=== PATIENT | male | born 1945 | race Caucasian/White ===

== ENCOUNTER 2021-09-03 00:14 | Emergency (ER) | payer MEDICARE, SELFPAY ==
--- NOTE | 2021-09-03 | ECG_ITS ---
Test Reason : CHEST PAIN Blood Pressure : / mmHG Vent. Rate : 070 BPM Atrial Rate : 070 BPM P-R Int : 162 ms QRS Dur : 092 ms QT Int : 444 ms P-R-T Axes : 048 -57 055 degrees QTc Int : 479 ms Normal sinus rhythm Left axis deviation Pulmonary disease pattern Nonspecific T wave abnormality Abnormal ECG No previous ECGs available Referred By: Sridevi Wilder Electronically Signed By:LALO BOO
--- NOTE | ~2021-09-03 | XR_ITS ---
EXAMINATION: XR CHEST CLINICAL INFORMATION: Chest pain COMPARISON: None TECHNIQUE: Frontal view of the chest was obtained. FINDINGS: Cardiac leads overlie the chest. The lungs are well expanded. There is no focal consolidation, edema, or effusion. No pneumothorax. The cardiomediastinal silhouette is within normal limits. No acute osseous abnormality. XR/XR chest 1V IMPRESSION: No acute pulmonary finding.
[2021-09-03 00:23] VITALS: BP 138/80; PULSE 68; RESP 18; TEMP 36.6; O2SAT 96; BMI 22.9
[2021-09-03 00:51] LABS: Basophils Absolute Auto 0.1 X10*3/uL (0.0-0.2); Basophils Percent Auto 1.2 % (0-2); Eosinophils Absolute Auto 0.3 X10*3/uL (0.0-0.4); Eosinophils Percent Auto 3.5 % (0-4); Hematocrit 42.7 % (42.0-52.0); Hemoglobin 13.9 g/dl (14.0-18.0); Imm Gran Abs Auto 0.02 X10*3/uL (0.00-0.03); Imm Gran Pct Auto 0.2 % (0.0-0.4); Lymphocytes Absolute Auto 2.5 X10*3/uL (1.2-4.9); Lymphocytes Percent Auto 28.5 % (20-40); MANUAL DIFF FLAG NO; Mean Corpuscular HGB Conc 32.6 g/dl (31.0-36.0); Mean Corpuscular Hemoglobin 30.2 pg (27.0-33.0); Mean Corpuscular Volume 92.6 fL (80.0-98.0); Mean Platelet Volume 10.8 fL (9.4-12.4); Monocytes Absolute Auto 0.5 X10*3/uL (0.1-1.2); Monocytes Percent Auto 6.1 % (2-11); Neutrophils Absolute Auto 5.4 x10*3/uL (2.0-8.3); Neutrophils Percent Auto 60.5 % (45-73); Platelet Count 255 X10*3/uL (160-400); Red Blood Count 4.61 X10*6/uL (4.60-5.80); Red Cell Distribution Width 13.4 % (11.0-16.0); White Blood Count 8.9 X10*3/uL (4.8-10.8)
[2021-09-03 01:04] LABS: Anion Gap 16 (12-20); Blood Urea Nitrogen 24 mg/dL (9-16); Calcium 10.1 mg/dL (8.4-10.2); Carbon Dioxide 25 mmol/L (22-29); Chloride 103 mmol/L (96-108); Creatinine Clr Calc Pharmacy 45.7; Estimated Glomerular Filt Rate 49; Glucose Random 285 mg/dL (60-115); Potassium 4.7 mmol/L (3.3-5.1); Sodium 139 mmol/L (135-145)
[2021-09-03 02:11] LABS: Troponin-I High Sensitivity 30.8 ng/L (<3.5-35.0)
[2021-09-03 03:43] VITALS: BP 167/74; PULSE 60; RESP 16; O2SAT 98
[2021-09-03 04:04] LABS: COVID-19 Test Negative (Negative); Troponin-I High Sensitivity 33.2 ng/L (<3.5-35.0)
--- NOTE | 2021-09-03 05:27 | ED.CHESTPAIN ---
HPI - Chest Pain General Chief Complaint: Chest Pain Stated Complaint: Pt believes to be having a heart attack Time Seen by Provider: 09/03/21 01:27 Source: patient and family () Mode of arrival: ambulatory History of Present Illness HPI narrative: 76-year-old male with history of diabetes and prior stents in early currently on aspirin/Plavix and states for the past 2 weeks he has had intermittent left-sided chest discomfort that is very transient nature and not associated with any diaphoresis/nausea/shortness of breath and patient states that he experiences this regardless of what he is doing. This morning he presents after having walked briskly around the block in search of a loss dog and then states that when he got home he experienced discomfort in his left armpit that was associated with some mild nausea as well as shortness of breath. Patient states that the symptoms lasted approximately 30 minutes, resolved, and have not come back. Patient states that he is currently asymptomatic and says that he takes all of his medications as scheduled. Related Data Allergies Allergy/AdvReac Type Severity Reaction Status Date / Time No Known Allergies Allergy Verified 09/03/21 05:44 Review of Systems Review of Systems: Pertinent positives and negatives as stated in HPI 10 point review of systems is otherwise negative. COUNT INCLUDES THE [facility] Past Medical History Source: nursing notes reviewed Social History Social History Advance Directives: No Physical Exam Vital Signs: Vital Signs: Last Vital Signs Temp 97.9 F 09/03/21 00:23 Pulse 59 09/03/21 05:53 Resp 15 09/03/21 05:53 BP 134/74 09/03/21 05:53 Pulse Ox 98 09/03/21 05:53 BMI result Body Mass Index 22.9 VITAL SIGNS: Reviewed. GENERAL: Well developed, well nourished, in no acute distress. HEAD: Normocephalic/atraumatic EYES: PERRLA, EOMI EARS: Ext canals without abnormality OROPHARYNX: no oral lesions noted, posterior pharynx clear LUNGS: Normal breath sounds, no wheeze/rhonchi/rales No adventitious sounds or accessory muscle use. SpO2<98> CARDIOVASCULAR: Regular rate and rhythm without noted murmurs ABDOMEN: Soft, non-tender, non-distended with bowel sounds. SKIN: Inspection of the skin reveals no rashes NEUROLOGIC: Alert and oriented x 4. Strength and sensation to light touch were grossly intact x 4. Course Course Course Narrative: 76-year-old male with history and clinical presentation concerning for unstable angina and although patient is asymptomatic at this time on review of EKG concerning findings in V2/V3/V4 concerning for Wellens. Repeat EKG shows resolution of some of this morphology and I discussed this case with Cardiology ([id number]) who agrees with starting heparin and will see the patient in the ER. Signed out to Dr Travis AMEZCUA - Chest Pain Lab Data Result diagrams: 09/03/21 06:30 09/03/21 00:45 Labs: Lab Results 09/03/21 09/03/21 09/03/21 Range/Units 00:45 00:45 00:45 WBC 8.9 (4.8-10.8) X10*3/uL RBC 4.61 (4.60-5.80) X10*6/uL Hgb 13.9 L (14.0-18.0) g/dl Hct 42.7 (42.0-52.0) % MCV 92.6 (80.0-98.0) fL MCH 30.2 (27.0-33.0) pg MCHC 32.6 (31.0-36.0) g/dl RDW 13.4 (11.0-16.0) % Plt Count 255 (160-400) X10*3/uL MPV 10.8 (9.4-12.4) fL Immature Gran % (Auto) 0.2 (0.0-0.4) % Neut % (Auto) 60.5 (45-73) % Lymph % (Auto) 28.5 (20-40) % [place] % (Auto) 6.1 (2-11) % Eos % (Auto) 3.5 (0-4) % Baso % (Auto) 1.2 (0-2) % Lymph # (Auto) 2.5 (1.2-4.9) X10*3/uL [place] # (Auto) 0.5 (0.1-1.2) X10*3/uL Eos # (Auto) 0.3 (0.0-0.4) X10*3/uL Baso # (Auto) 0.1 (0.0-0.2) X10*3/uL Abs Immat Gran (auto) 0.02 (0.00-0.03) X10*3/uL Absolute Neuts (auto) 5.4 (2.0-8.3) x10*3/uL Absolute Nucleated RBC 0.000 (0.0-0.012) X10*3/uL Nucleated RBC % (auto) 0.0 (0.0-0.2) /100WBC PT (9.9-13.0) SEC INR (0.9-1.1) aPTT Heparin Protocol (53-77.9) SEC Sodium 139 (135-145) mmol/L Potassium 4.7 (3.3-5.1) mmol/L Chloride 103 (96-108) mmol/L Carbon Dioxide 25 (22-29) mmol/L Anion Gap 16 (12-20) BUN 24 H (9-16) mg/dL Creatinine 1.41 H (0.5-1.4) mg/dL Estim Creat Clear Calc 45.7 Estimated GFR 49 Random Glucose 285 H (60-115) mg/dL Calcium 10.1 (8.4-10.2) mg/dL Troponin I High Sens 30.8 (<3.5-35.0) ng/L COVID-19 (BARRY) (Negative) COVID-19 Clin Com 09/03/21 09/03/21 09/03/21 Range/Units 03:38 03:38 06:30 WBC 8.9 (4.8-10.8) X10*3/uL RBC 4.42 L (4.60-5.80) X10*6/uL Hgb 13.6 L (14.0-18.0) g/dl Hct 40.9 L (42.0-52.0) % MCV 92.5 (80.0-98.0) fL MCH 30.8 (27.0-33.0) pg MCHC 33.3 (31.0-36.0) g/dl RDW 13.4 (11.0-16.0) % Plt Count 240 (160-400) X10*3/uL MPV 10.8 (9.4-12.4) fL Immature Gran % (Auto) (0.0-0.4) % Neut % (Auto) (45-73) % Lymph % (Auto) (20-40) % [place] % (Auto) (2-11) % Eos % (Auto) (0-4) % Baso % (Auto) (0-2) % Lymph # (Auto) (1.2-4.9) X10*3/uL [place] # (Auto) (0.1-1.2) X10*3/uL Eos # (Auto) (0.0-0.4) X10*3/uL Baso # (Auto) (0.0-0.2) X10*3/uL Abs Immat Gran (auto) (0.00-0.03) X10*3/uL Absolute Neuts (auto) (2.0-8.3) x10*3/uL Absolute Nucleated RBC 0.000 (0.0-0.012) X10*3/uL Nucleated RBC % (auto) 0.0 (0.0-0.2) /100WBC PT (9.9-13.0) SEC INR (0.9-1.1) aPTT Heparin Protocol (53-77.9) SEC Sodium (135-145) mmol/L Potassium (3.3-5.1) mmol/L Chloride (96-108) mmol/L Carbon Dioxide (22-29) mmol/L Anion Gap (12-20) BUN (9-16) mg/dL Creatinine (0.5-1.4) mg/dL Estim Creat Clear Calc Estimated GFR Random Glucose (60-115) mg/dL Calcium (8.4-10.2) mg/dL Troponin I High Sens 33.2 (<3.5-35.0) ng/L COVID-19 (BARRY) Negative (Negative) COVID-19 Clin Com See Note 09/03/21 Range/Units 06:30 WBC (4.8-10.8) X10*3/uL RBC (4.60-5.80) X10*6/uL Hgb (14.0-18.0) g/dl Hct (42.0-52.0) % MCV (80.0-98.0) fL MCH (27.0-33.0) pg MCHC (31.0-36.0) g/dl RDW (11.0-16.0) % Plt Count (160-400) X10*3/uL MPV (9.4-12.4) fL Immature Gran % (Auto) (0.0-0.4) % Neut % (Auto) (45-73) % Lymph % (Auto) (20-40) % [place] % (Auto) (2-11) % Eos % (Auto) (0-4) % Baso % (Auto) (0-2) % Lymph # (Auto) (1.2-4.9) X10*3/uL [place] # (Auto) (0.1-1.2) X10*3/uL Eos # (Auto) (0.0-0.4) X10*3/uL Baso # (Auto) (0.0-0.2) X10*3/uL Abs Immat Gran (auto) (0.00-0.03) X10*3/uL Absolute Neuts (auto) (2.0-8.3) x10*3/uL Absolute Nucleated RBC (0.0-0.012) X10*3/uL Nucleated RBC % (auto) (0.0-0.2) /100WBC PT 12.2 (9.9-13.0) SEC INR 1.1 (0.9-1.1) aPTT Heparin Protocol 33.5 L (53-77.9) SEC Sodium (135-145) mmol/L Potassium (3.3-5.1) mmol/L Chloride (96-108) mmol/L Carbon Dioxide (22-29) mmol/L Anion Gap (12-20) BUN (9-16) mg/dL Creatinine (0.5-1.4) mg/dL Estim Creat Clear Calc Estimated GFR Random Glucose (60-115) mg/dL Calcium (8.4-10.2) mg/dL Troponin I High Sens (<3.5-35.0) ng/L COVID-19 (BARRY) (Negative) COVID-19 Clin Com ECG Data ECG #1: Attestation: I personally reviewed and interpreted this ECG as follows: Prior ECG tracings: not available for review Interpretation: 0023: Normal sinus rhythm, HR-69, no STEMI but questionable Wellens features noted, DC/QRS/QTC are within normal limits. 0545: Sinus bradycardia, HR-56, no STEMI but Wellens features have resolved, DC/QRS/QTC are within normal limits. Discharge Plan Discharge Clinical Impression: Chest pain, Unstable angina pectoris, CKD (chronic kidney disease) Patient Disposition: Still a Patient
--- NOTE | 2021-09-03 05:47 | ECG_ITS ---
Test Reason : CHEST PAIN Blood Pressure : / mmHG Vent. Rate : 069 BPM Atrial Rate : 069 BPM P-R Int : 172 ms QRS Dur : 094 ms QT Int : 444 ms P-R-T Axes : 059 -51 042 degrees QTc Int : 475 ms Normal sinus rhythm Left anterior fascicular block T wave abnormality, consider anterior ischemia Prolonged QT Abnormal ECG When compared with ECG of 03-SEP-2021 00:21, No significant change was found Referred By: Sridevi Wilder Electronically Signed By:LALO BOO
[2021-09-03 05:53] VITALS: BP 134/74; PULSE 59; RESP 15; O2SAT 98
[2021-09-03 07:01] LABS: INTERNATIONAL NORM RATIO 1.1 (0.9-1.1); Prothrombin Time 12.2 SEC (9.9-13.0)
[2021-09-03 07:03] LABS: PTT Heparin Drip 33.5 SEC (53-77.9)
[2021-09-03] MEDS: Heparin Sodium,Porcine 5,000 UNIT/ML VIAL 4000 UNIT IVPUSH (07:04)
[2021-09-03 07:05] LABS: Hematocrit 40.9 % (42.0-52.0); Hemoglobin 13.6 g/dl (14.0-18.0); Mean Corpuscular HGB Conc 33.3 g/dl (31.0-36.0); Mean Corpuscular Hemoglobin 30.8 pg (27.0-33.0); Mean Corpuscular Volume 92.5 fL (80.0-98.0); Mean Platelet Volume 10.8 fL (9.4-12.4); Platelet Count 240 X10*3/uL (160-400); Red Blood Count 4.42 X10*6/uL (4.60-5.80); Red Cell Distribution Width 13.4 % (11.0-16.0); White Blood Count 8.9 X10*3/uL (4.8-10.8)
[2021-09-03] MEDS: Heparin Sodium,Porcine/1/2NS 25,000 UNIT/250 ML IV.SOLN 8.71 UNIT IVCONT (07:05)
[2021-09-03 07:36] VITALS: BP 136/74; PULSE 61; RESP 18; TEMP 37; O2SAT 96
--- NOTE | 2021-09-03 08:55 | P.EN_ITS ---
Event Note Date of Service: 09/03/21 Event Note: Asked to see in ER. Briefly 76 M, moved from [place]. PCI about 20 years ago, no details available. Intermittent left arm discomfort with and without exertion last 2 weeks. Yesterday, went after missing dog and developed left arm discomfort, SOB, nausea, thought he was going to throw up. One of the EKGs with biphasic anterior T waves, but in others, it pseudonormalizes. Trops at upper end of normal range. Can treat as unstable angina. Already on IV Heparin. At [facility], already on Asa, plavix, metformin, Atorvastatin. Can be transferred [place] [facility] [place] care. Will need diagnostic catheterization but he states that he wants a second opinion before proceeding. Full consult to follow.
--- NOTE | 2021-09-03 09:10 | P.CONCA_ITS ---
History of Present Illness History of Present Illness Date of Service: 09/03/21 Chief complaint: Pt believes to having a heart attack Narrative: This is a cardiology consultation regarding chest pain. Patient states that he used to live in [place] but recently has moved to the local area. He has coronary disease and apparently received stents a 20 years ago. No details available. Otherwise as history of type 2 diabetes on metformin. He states that his any doing okay but in the last 2 weeks he has been having some left-sided arm discomfort. This has been happening with and without exertion. Yesterday it seems that he thought his dog went missing and hence he started looking forward and then noticed left arm discomfort accompanied by shortness of breath as well as some nausea. He thought he was going to throw up. Subsequently, he was evaluated in the ER. He was diagnosed to have unstable angina. He has been put on heparin drip. One of the EKG shows biphasic anterior T-waves but other EKGs are unremarkable. Home medications according to patient include aspirin, Plavix, metformin and atorvastatin. Review of Systems Review of Systems: Yes all other systems are reviewed and are negative Cardiovascular: Cardiovascular: Reports as per HPI, Reports no additional cardiovascular complaints, Denies acrocyanosis, Denies cool extremities, Denies chest pain, Denies diaphoresis, Denies syncope, Denies claudication, Denies leg edema, Denies lightheadedness, Denies palpitations and Denies dyspnea Respiratory: Respiratory: Denies dyspnea Neurologic: Denies syncope Endocrine: Endocrine: Denies palpitations [facility] Past Medical History Medical History (Updated 09/03/21 @ 10:19 by José Antonio Sherman MD) CAD (coronary artery disease) CKD (chronic kidney disease) Type 2 diabetes mellitus with unspecified complications Family History Pertinent family history: Patient denies any significant family history of cardiac issues. Social History Social History Advance Directives: No Meds Allergies Allergy/AdvReac Type Severity Reaction Status Date / Time No Known Allergies Allergy Verified 09/03/21 05:44 Active Medications: Current Medications Heparin Sodium (Porcine) (Heparin Sodium,Porcine 5,000 Unit/Ml Vial) 2,900 unit 40 unit/kg (2900 unit) IVPUSH PROTOCOL BOLUS PRN; Protocol PRN Reason: 40 unit/kg - Heparin Protocol Heparin Sodium (Porcine) (Heparin Sodium,Porcine 5,000 Unit/Ml Vial) 5,800 unit 80 unit/kg (5800 unit) IVPUSH PROTOCOL BOLUS PRN; Protocol PRN Reason: 80 unit/kg - Heparin Protocol Heparin Sodium/Sodium Chloride () 25,000 unit in 250 mls @ 8.709 mls/hr IVCONT .Q24H ALPA; Protocol Last Admin: 09/03/21 07:05 Dose: 12 units/kg/hr, 8.71 mls/hr Documented by: Pharmacy Consult (Consult Rx Perform Med Rec) 1 each MISCELLANE ONCE PRN PRN Reason: Consult order Home Medications Medication Instructions Recorded Confirmed Last Taken Type acetaminophen 325 mg tablet 650 mg PO Q6H PRN 09/03/21 09/03/21 Unknown History aspirin 81 mg chewable tablet 81 mg PO DAILY 09/03/21 09/03/21 09/01/21 History atorvastatin 80 mg tablet 80 mg PO DAILY 09/03/21 09/03/21 09/01/21 History clopidogrel 75 mg tablet (Plavix) 75 mg PO DAILY 09/03/21 09/03/21 09/01/21 History glimepiride 4 mg tablet 4 mg PO DAILY 09/03/21 09/03/21 09/01/21 History metformin 500 mg tablet 500 mg PO DAILY 09/03/21 09/03/21 09/01/21 History Physical Exam Vital Signs: Vital Signs: Last Vital Signs Temp 98.6 F 09/03/21 07:36 Pulse 61 09/03/21 07:36 Resp 18 09/03/21 07:36 BP 136/74 09/03/21 07:36 Pulse Ox 96 09/03/21 07:36 BMI result Body Mass Index 22.9 Const: General: comfortable HENMT: Other: Unremarkable Neck: Neck: Yes normal visual inspection Chest: Chest palpation & inspection: normal inspection of the chest Resp: Auscultation: clear to auscultation bilaterally Cardio: Palpation: normal PMI Heart sounds: S1 normal heart sound present, S2 normal heart sound present, no gallops, no murmurs and no rubs GI: Palpation (GI): Soft to palpation Back/Spine/Pelvis: Other: unremarkable Skin: Lesions: other Neuro: Cognition (Neuro): normal cognition Extrem: General: Yes normal to inspection Psych: Appearance: grossly normal Objective Labs and Meds Result diagrams: 09/03/21 06:30 09/03/21 00:45 Lab results: Laboratory Results - last 24 hr 09/03/21 09/03/21 09/03/21 00:45 00:45 00:45 WBC 8.9 RBC 4.61 Hgb 13.9 L Hct 42.7 MCV 92.6 MCH 30.2 MCHC 32.6 RDW 13.4 Plt Count 255 MPV 10.8 Immature Gran % (Auto) 0.2 Neut % (Auto) 60.5 Lymph % (Auto) 28.5 [place] % (Auto) 6.1 Eos % (Auto) 3.5 Baso % (Auto) 1.2 Lymph # (Auto) 2.5 [place] # (Auto) 0.5 Eos # (Auto) 0.3 Baso # (Auto) 0.1 Abs Immat Gran (auto) 0.02 Absolute Neuts (auto) 5.4 Absolute Nucleated RBC 0.000 Nucleated RBC % (auto) 0.0 PT INR aPTT Heparin Protocol Sodium 139 Potassium 4.7 Chloride 103 Carbon Dioxide 25 Anion Gap 16 BUN 24 H Creatinine 1.41 H Estim Creat Clear Calc 45.7 Estimated GFR 49 Random Glucose 285 H Calcium 10.1 Troponin I High Sens 30.8 COVID-19 ([facility]ARRY) COVID-[facility] 09/03/21 09/03/21 09/03/21 03:38 03:38 06:30 WBC 8.9 RBC 4.42 L Hgb 13.6 L Hct 40.9 L MCV 92.5 MCH 30.8 MCHC 33.3 RDW 13.4 Plt Count 240 MPV 10.8 Immature Gran % (Auto) Neut % (Auto) Lymph % (Auto) [place] % (Auto) Eos % (Auto) Baso % (Auto) Lymph # (Auto) [place] # (Auto) Eos # (Auto) Baso # (Auto) Abs Immat Gran (auto) Absolute Neuts (auto) Absolute Nucleated RBC 0.000 Nucleated RBC % (auto) 0.0 PT INR aPTT Heparin Protocol Sodium Potassium Chloride Carbon Dioxide Anion Gap BUN Creatinine Estim Creat Clear Calc Estimated GFR Random Glucose Calcium Troponin I High Sens 33.2 COVID-19 (BARRY) Negative COVID-19 [employer] Com See Note 09/03/21 06:30 WBC RBC Hgb Hct MCV MCH MCHC RDW Plt Count MPV Immature Gran % (Auto) Neut % (Auto) Lymph % (Auto) [place] % (Auto) Eos % (Auto) Baso % (Auto) Lymph # (Auto) [place] # (Auto) Eos # (Auto) Baso # (Auto) Abs Immat Gran (auto) Absolute Neuts (auto) Absolute Nucleated RBC Nucleated RBC % (auto) PT 12.2 INR 1.1 aPTT Heparin Protocol 33.5 L Sodium Potassium Chloride Carbon Dioxide Anion Gap BUN Creatinine Estim Creat Clear Calc Estimated GFR Random Glucose Calcium Troponin I High Sens COVID-19 (BARRY) COVID-19 Clin Com ECG Interpretation: EKGs reviewed. Initial EKG show biphasic T-waves in the anterior leads but subsequent EKG seems to be within normal limits. Imaging Radiologist's impression: Impressions Chest X-Ray 09/03/21 03:45 IMPRESSION: No acute pulmonary finding. Assessment and Plan (1) Unstable angina pectoris: Status: Acute Plan Symptoms suggestive of unstable angina. He has been having left arm discomfort intermittently for the last 2 weeks. Presentation with left arm discomfort, shortness of breath and nausea after searching for missing dog. EKG with biphasic T-waves initially in the anterior leads which then normalize. Troponins are in the upper end of normal. He has CKD. He also has diabetes. History of PCI about 20 years ago in [place] but no details available. Overall, recommend treating this as unstable angina. He is already on IV heparin drip. At home per patient is already on aspirin Plavix. He is also on statins. He will benefit from a diagnostic cardiac catheterization and recommend transferring to [facility]. Patient states that he wants 2nd opinion before proceeding and that can be performed at the consult cardiology service at [facility]. I contacted the hospitalist service as well as the cardiology service and the transfer center at [facility] to arrange the above. Procedures Date of Service Date of Service: 09/03/21
--- NOTE | 2021-09-03 09:57 | PHA.MEDREC ---
Pharmacy Consult ? Medication Reconciliation Pharmacy has completed the medication reconciliation. Patient brought in all medications. Reports nothing OTC Jessica Villarreal,FazalD
[2021-09-03 13:05] LABS: PTT Heparin Drip 94.9 SEC (53-77.9)
--- NOTE | 2021-09-03 14:02 | PC.NURSE ---
report given to CRESCENCIO Alcazar at [facility]. Pt will be tranported to [facility] - Room 5133 via ambulance. daughter at bedside, both pt and daughter aware of plan.
[2021-09-03 14:19] LABS: Glucose, Whole Blood 131 mg/dL (60-115)
--- NOTE | 2021-09-06 17:35 | ECG_ITS ---
Test Reason : repeat EKG Blood Pressure : / mmHG Vent. Rate : 056 BPM Atrial Rate : 056 BPM P-R Int : 184 ms QRS Dur : 096 ms QT Int : 484 ms P-R-T Axes : 044 -36 024 degrees QTc Int : 467 ms Sinus bradycardia Left axis deviation Minimal voltage criteria for LVH, may be normal variant ( [employer] ) Abnormal ECG When compared with ECG of 03-SEP-2021 00:23, Nonspecific T wave abnormality now evident in Inferior leads T wave inversion no longer evident in Anterior leads Referred By: Generic ED Physician Electronically Signed By:Julio C Silva
== END 2021-09-03 16:21 | disposition short-term general hospital (02) ==
PROVIDERS: Internal Medicine; Student in an Organized Health Care Education/Training Program; Emergency Provider Emergency Medicine
DX: R07.9 Chest pain, unspecified (principal); I20.0 Unstable angina; R06.02 Shortness of breath; E11.22 Type 2 diabetes mellitus with diabetic chronic kidney disease; N18.9 Chronic kidney disease, unspecified; Z20.822 Contact with and (suspected) exposure to COVID-19; Z79.01 Long term (current) use of anticoagulants
CPT/HCPCS: 36415; 71045; 80048; 82947; 84484; 85025; 85027; 85610; 85730; 87635; 93005; 96365; 96375; 99285

== ENCOUNTER 2022-09-11 22:19 | Emergency (ER) | payer MEDICARE, SELFPAY ==
[2022-01-18 10:58] VITALS: BP 130/72; BP 132/64; BMI 21.9
--- NOTE | 2022-09-11 | ECG_ITS ---
Test Reason : CHESP PAIN Blood Pressure : / mmHG Vent. Rate : 067 BPM Atrial Rate : 067 BPM P-R Int : 160 ms QRS Dur : 086 ms QT Int : 448 ms P-R-T Axes : 026 -39 039 degrees QTc Int : 473 ms Normal sinus rhythm Left axis deviation Abnormal ECG When compared with ECG of 03-SEP-2021 05:45, No significant change was found Referred By: Generic ED Physician Electronically Signed By:LALO BOO
--- NOTE | ~2022-09-11 | XR_ITS ---
EXAMINATION: XR CHEST CLINICAL INFORMATION: Chest pain COMPARISON: 09/03/2021 TECHNIQUE: Frontal view of the chest was obtained. FINDINGS: Patient status post median sternotomy since the prior study. Lung volumes have decreased. Some scattered areas of atelectasis are present. No consolidations, effusions, lung masses or changes of CHF. XR/XR chest 1V IMPRESSION: No acute intrathoracic disease.
--- NOTE | ~2022-09-11 | CT_ITS ---
EXAMINATION: CT ABDOMEN AND PELVIS WITHOUT CONTRAST CLINICAL INFORMATION: Right flank pain COMPARISON: None available. TECHNIQUE: Multidetector volumetric imaging was performed from the superior aspect of the liver through the pubic symphysis. Sagittal and coronal reformatted images were obtained on the technologist's workstation. This CT examination was performed using dose optimization techniques as appropriate, variously including the following: *Automated exposure control *Adjustment of mA and/or kV according to patient size (this includes techniques or standardized protocols for targeted exams where dose is matched to indication/reason for exam; i.e. extremities or head) *Use of iterative reconstruction technique DLP: 600 mGy-cm FINDINGS: LUNG BASES: Minimal right basilar atelectasis. Normal heart size. Dense coronary artery calcification. LIVER, GALLBLADDER, AND BILIARY TREE: The liver is normal in size, shape, and attenuation. No focal hepatic lesion or biliary ductal dilatation is present. The gallbladder is unremarkable with no evidence of radiopaque gallstones, gallbladder wall thickening, or obvious pericholecystic inflammatory changes. PANCREAS: Unremarkable. SPLEEN: Unremarkable. ADRENAL GLANDS: Unremarkable. KIDNEYS AND URETERS: The kidneys are normal in size, shape, and attenuation. No hydronephrosis, hydroureter, or calculi seen. No perinephric stranding. Simple bilateral renal cysts, greater on the left. No specific follow-up recommended. BLADDER: Unremarkable. GASTROINTESTINAL TRACT: The stomach is unremarkable. Normal caliber small bowel. No obstruction. No colonic wall thickening or inflammation. Moderate diffuse colonic stool burden. No free air or free fluid. ABDOMINAL WALL: No significant hernia is appreciated. LYMPH NODES: Normal. VASCULAR: Moderate atherosclerotic calcification. Infrarenal abdominal aortic aneurysm which measures 2.8 cm in AP dimension. PELVIC VISCERA: Enlarged prostate measures 5 cm transverse. OSSEOUS STRUCTURES: No acute or suspicious osseous abnormality. CT/CT abdomen pelvis wo IV con IMPRESSION: 1. No acute findings in the abdomen or pelvis. No hydronephrosis or nephrolithiasis. 2. Moderate colonic stool burden. 3. 2.8 cm infrarenal abdominal aortic aneurysm. Based on published guidelines in J Am Rosalva Radiol 2013; 10(10):789-794 and J Vasc Surg. 2018; 67:2-77, the recommendation for an abdominal aorta with diameter 2.6-2.9 cm is follow-up every 5 years if the aorta that meets the criteria for AAA (>1.5 x proximal normal segment; no f/u if < 1.5 x proximal normal segment; no f/u for aorta < 2.6 cm). Fleischner guidelines were followed.
[2022-09-11 22:43] VITALS: BP 191/94; PULSE 70; RESP 18; TEMP 36.3; O2SAT 98; BMI 22.2
--- NOTE | 2022-09-11 23:01 | MHC.EDTECH ---
PT EKG DONE AND WAS READ BY PROVIDER ,COVID SWAB COLLECTED AND BLOOD DRAWN AND SENT TO LAB .
[2022-09-11 23:07] LABS: MANUAL DIFF FLAG NO
[2022-09-11 23:09] LABS: Basophils Absolute Auto 0.1 X10*3/uL (0.0-0.2); Basophils Percent Auto 1.3 % (0-2); Eosinophils Absolute Auto 0.2 X10*3/uL (0.0-0.4); Eosinophils Percent Auto 2.3 % (0-4); Hematocrit 39.3 % (42.0-52.0); Hemoglobin 13.1 g/dl (14.0-18.0); Imm Gran Abs Auto 0.03 X10*3/uL (0.00-0.03); Imm Gran Pct Auto 0.3 % (0.0-0.4); Lymphocytes Percent Auto 19.7 % (20-40); Mean Corpuscular HGB Conc 33.3 g/dl (31.0-36.0); Mean Corpuscular Hemoglobin 29.6 pg (27.0-33.0); Mean Corpuscular Volume 88.7 fL (80.0-98.0); Mean Platelet Volume 9.8 fL (9.4-12.4); Monocytes Absolute Auto 0.6 X10*3/uL (0.1-1.2); Monocytes Percent Auto 5.6 % (2-11); Neutrophils Absolute Auto 7.2 x10*3/uL (2.0-8.3); Neutrophils Percent Auto 70.8 % (45-73); Platelet Count 276 X10*3/uL (160-400); Red Blood Count 4.43 X10*6/uL (4.60-5.80); Red Cell Distribution Width 13.8 % (11.0-16.0); White Blood Count 10.2 X10*3/uL (4.8-10.8)
--- NOTE | 2022-09-11 23:15 | ED_ITS ---
HPI - Chest Pain General Chief Complaint: Chest Pain Stated Complaint: back pain Time Seen by Provider: 09/11/22 23:08 History of Present Illness HPI narrative: Patient is 77 years old presents today with having pain to the right shoulder blade area. Patient denies any fever chills. Pain is sharp. Positive history of diabetes, high blood pressure high cholesterol. Positive history of coronary artery disease status post bypass patient questionably on Plavix. No chest pain or diaphoresis. No abdominal pain. History of kidney stone. Feels this pain is very similar but it is much higher. No radiation of the pain. Not affected by walking or movement. Related Data Home Medications Medication Instructions Recorded Confirmed acetaminophen 325 mg tablet 650 mg PO Q6H PRN Pain 09/03/21 09/03/21 aspirin 81 mg chewable tablet 81 mg PO DAILY 09/03/21 09/03/21 atorvastatin 80 mg tablet 80 mg PO DAILY 09/03/21 09/03/21 clopidogrel 75 mg tablet (Plavix) 75 mg PO DAILY 09/03/21 09/03/21 glimepiride 4 mg tablet 4 mg PO DAILY 09/03/21 09/03/21 metformin 500 mg tablet 500 mg PO DAILY 09/03/21 09/03/21 Allergies Allergy/AdvReac Type Severity Reaction Status Date / Time No Known Allergies Allergy Verified 09/11/22 22:42 Review of Systems Review of Systems: Positive right scapular pain Yes all other systems are reviewed and are negative [facility] Past Medical History Attestation statement: The following information was validated with the patient. Medical History CAD (coronary artery disease) CKD (chronic kidney disease) Type 2 diabetes mellitus with unspecified complications Social History Social History Alcohol intake: current Alcohol intake frequency: holidays/special occasions only Patient Tobacco Use Status: Former Tobacco user Quit Date: last year Tobacco use type: Cigarette Cigarette Packs Per Day: 1 Years Smoked: 60 Smoked in Last 30 Days: No Use of substances other than those prescribed or required for medical reasons: No Advance Directives: No Advance Directives Information Provided: No Physical Exam Vital Signs: Vital Signs: Last Vital Signs Temp 98 F 09/11/22 23:19 Pulse 68 09/11/22 23:19 Resp 13 09/11/22 23:19 BP 187/91 H 09/11/22 23:19 Pulse Ox 98 09/11/22 23:19 O2 Del Method Room Air 09/11/22 23:19 BMI result Body Mass Index 22.2 Appearance: Alert. Oriented X3. No acute distress. Eyes: Pupils equal, round and reactive to light. ENT: Pharynx normal. Neck: Normal inspection. Neck supple. No lymph nodes noted. No crepitus CVS: Normal heart rate and rhythm. Pulses normal. Normal S1 and S2 Respiratory: No respiratory distress. Breath sounds normal. No Wheezing. No rales Abdomen: Soft and nontender. No rigidity. No distention. good BS x4 Skin: Skin warm and dry. Normal skin color. Normal skin turgor. Extremities: No lower extremity edema. Neurovascular intact to all extremities. No Lacerations. No Rash Neuro: Oriented X 3. No motor deficit. No sensory deficit. Moving all extermities. No slurred speech Medications Administered Discontinued Medications Generic Name Dose Route Start Last Admin Trade Name Daniloq PRN Reason Stop Dose Admin Ondansetron HCl 4 mg 09/12/22 00:14 09/12/22 00:48 Ondansetron Hcl 4 Mg/2 Ml Vial IVPUSH 09/12/22 00:15 Not Given ONCE ONE Ondansetron HCl 4 mg 09/12/22 00:47 09/12/22 00:52 Ondansetron Odt 4 Mg Tab.Rapdis TRANSLINGU 09/12/22 00:48 Not Given ONCE ONE Medical Decision Making Medical Decision Making [facility] Narrative: Patient has pain in the right scapular area has been ongoing for his at least 5 hours. Patient's troponin was 5. Less likely this is secondary to ACS. My interpretation patient's EKG showed a sinus pattern heart rate is 60 NC QRS QT within normal limits there is no acute ST segment elevation. He does have a history of hypertension and high cholesterol. Case was discussed with him he is 77 years old patient does not wish to stay felt the risk of ACS is still low. Patient's D-dimer was 339. Age adjusted the D-dimer was negative making PE unlikely. Especially in the setting of low risk for PE. No fever no chills no coughing. Chest x-ray showed no evidence of pneumonia pneumothorax. Patient has pain more likely musculoskeletal. Will discharge patient home. Patient had an episode of nausea vomiting. Additional CT scan of the abdomen pelvis was done. It was grossly negative. No evidence for obstruction there is a small infrarenal aortic aneurysm noted. There is only 2 point 8 cm in size. Differential Diagnosis Differential Diagnoses: The differential diagnosis associated with the presenta tion includes PE, pneumonia, pneumothorax, ACS, Admission/Observation Consideration of admission/observation: Escalation of care including admission/observation considered Lab Data MDM Lab Attestation statement: I reviewed the patient's lab results. 09/11/22 23:00 09/11/22 23:00 Labs: Lab Results 09/11/22 09/11/22 09/11/22 Range/Units 23:00 23:00 23:00 WBC 10.2 (4.8-10.8) X10*3/uL RBC 4.43 L (4.60-5.80) X10*6/uL Hgb 13.1 L (14.0-18.0) g/dl Hct 39.3 L (42.0-52.0) % MCV 88.7 (80.0-98.0) fL MCH 29.6 (27.0-33.0) pg MCHC 33.3 (31.0-36.0) g/dl RDW 13.8 (11.0-16.0) % Plt Count 276 (160-400) X10*3/uL MPV 9.8 (9.4-12.4) fL Immature Gran % (Auto) 0.3 (0.0-0.4) % Neut % (Auto) 70.8 (45-73) % Lymph % (Auto) 19.7 L (20-40) % [place]anner % (Auto) 5.6 (2-11) % Eos % (Auto) 2.3 (0-4) % Baso % (Auto) 1.3 (0-2) % Lymph # (Auto) 2.0 (1.2-4.9) X10*3/uL Banner # (Auto) 0.6 (0.1-1.2) X10*3/uL Eos # (Auto) 0.2 (0.0-0.4) X10*3/uL Baso # (Auto) 0.1 (0.0-0.2) X10*3/uL Abs Immat Gran (auto) 0.03 (0.00-0.03) X10*3/uL Absolute Neuts (auto) 7.2 (2.0-8.3) x10*3/uL Absolute Nucleated RBC 0.000 (0.0-0.012) X10*3/uL Nucleated RBC % (auto) 0.0 (0.0-0.2) /100WBC D-Dimer High Sensitivty NG/ML Sodium 141 (135-145) mmol/L Potassium 4.4 (3.3-5.1) mmol/L Chloride 103 (96-108) mmol/L Carbon Dioxide 27 (22-29) mmol/L Anion Gap 15 (12-20) BUN 26 H (9-16) mg/dL Creatinine 1.44 H (0.5-1.4) mg/dL Estim Creat Clear Calc 42.7 Estimated GFR 48 Random Glucose 145 H (60-115) mg/dL Calcium 9.3 D (8.4-10.2) mg/dL Total Bilirubin 1.3 H (0.0-1.0) mg/dL AST 18 (5-37) U/L ALT 14 (0-40) U/L Alkaline Phosphatase 96 (39-117) U/L Troponin I High Sens 5.0 (<3.5-35.0) ng/L Total Protein 7.0 (6.5-8.0) g/dL Albumin 4.2 (3.5-5.0) g/dL Urine Color Urine Appearance Urine pH (5.0-9.0) Ur Specific [place] (1.005-1.025) Urine Protein (Neg-Trace) mg/dL Urine Glucose (UA) (Negative) mg/dL Urine Ketones (Negative) mg/dL Urine Blood (Negative) Urine Nitrite (Negative) Ur Leukocyte Esterase (Negative) Urine RBC (0-2) /HPF Urine WBC (0-5) /HPF Ur Squamous Epith Cells (0-2) /HPF Urine Bacteria (None Seen) Hyaline Casts (0-2) /LPF COVID-19 (BARRY) (Negative) COVID-19 Clin Com 09/11/22 09/11/22 09/11/22 Range/Units 23:00 23:51 23:51 WBC (4.8-10.8) X10*3/uL RBC (4.60-5.80) X10*6/uL Hgb (14.0-18.0) g/dl Hct (42.0-52.0) % MCV (80.0-98.0) fL MCH (27.0-33.0) pg MCHC (31.0-36.0) g/dl RDW (11.0-16.0) % Plt Count (160-400) X10*3/uL MPV (9.4-12.4) fL Immature Gran % (Auto) (0.0-0.4) % Neut % (Auto) (45-73) % Lymph % (Auto) (20-40) % Banner % (Auto) (2-11) % Eos % (Auto) (0-4) % Baso % (Auto) (0-2) % Lymph # (Auto) (1.2-4.9) X10*3/uL Banner # (Auto) (0.1-1.2) X10*3/uL Eos # (Auto) (0.0-0.4) X10*3/uL Baso # (Auto) (0.0-0.2) X10*3/uL Abs Immat Gran (auto) (0.00-0.03) X10*3/uL Absolute Neuts (auto) (2.0-8.3) x10*3/uL Absolute Nucleated RBC (0.0-0.012) X10*3/uL Nucleated RBC % (auto) (0.0-0.2) /100WBC D-Dimer High Sensitivty 339 NG/ML Sodium (135-145) mmol/L Potassium (3.3-5.1) mmol/L Chloride (96-108) mmol/L Carbon Dioxide (22-29) mmol/L Anion Gap (12-20) BUN (9-16) mg/dL Creatinine (0.5-1.4) mg/dL Estim Creat Clear Calc Estimated GFR Random Glucose (60-115) mg/dL Calcium (8.4-10.2) mg/dL Total Bilirubin (0.0-1.0) mg/dL AST (5-37) U/L ALT (0-40) U/L Alkaline Phosphatase (39-117) U/L Troponin I High Sens (<3.5-35.0) ng/L Total Protein (6.5-8.0) g/dL Albumin (3.5-5.0) g/dL Urine Color Yellow Urine Appearance Clear Urine pH 8.0 (5.0-9.0) Ur Specific [place] 1.020 (1.005-1.025) Urine Protein 30 (1+) H (Neg-Trace) mg/dL Urine Glucose (UA) 100 H (Negative) mg/dL Urine Ketones Negative (Negative) mg/dL Urine Blood Negative (Negative) Urine Nitrite Negative (Negative) Ur Leukocyte Esterase Negative (Negative) Urine RBC 0-2 (0-2) /HPF Urine WBC 0-5 (0-5) /HPF Ur Squamous Epith Cells 0-2 (0-2) /HPF Urine Bacteria None Seen (None Seen) Hyaline Casts 0-2 (0-2) /LPF COVID-19 (BARRY) Negative (Negative) COVID-19 Clin Com See Note Independent Interpretation I performed an independent interpretation of an: EKG Interpretation: Sinus heart rate is 60 NC QRS QT within normal limits is no acute ST segment elevation Radiology Impression Discussion of test interpretation with radiology: I have reviewed the radiologist's reading. Independent Historian Clinical information obtained from an independent historian. History obtained from or confirmed by: Spouse External Record Review External record reviewed: Inpatient record Chronic Conditions Patient?s care impacted by: Diabetes and Hypertension Discharge Plan Discharge Clinical Impression: Chest pain Patient Disposition: Home, Self-Care Instructions: Chest Pain (DC) Additional Instructions: Below the kidney aortic aneurysm was noted. It is very small will require follow-up on an outpatient basis. Prescriptions: No Action metformin 500 mg Tablet 500 mg PO DAILY atorvastatin 80 mg Tablet 80 mg PO DAILY acetaminophen 325 mg Tablet 650 mg PO Q6H PRN (Reason: Pain) clopidogrel [Plavix] 75 mg Tablet 75 mg PO DAILY glimepiride 4 mg Tablet 4 mg PO DAILY aspirin 81 mg Tablet,Chewable 81 mg PO DAILY Referrals: Physician,Unknown J [Primary Care Provider] - 2 days
[2022-09-11 23:19] VITALS: BP 187/91; PULSE 68; RESP 13; TEMP 36.6; O2SAT 98
[2022-09-11 23:24] LABS: Alanine Aminotransferase 14 U/L (0-40); Albumin Level 4.2 g/dL (3.5-5.0); Alkaline Phosphatase 96 U/L (39-117); Anion Gap 15 (12-20); Aspartate Amino Transferase 18 U/L (5-37); Bilirubin Total 1.3 mg/dL (0.0-1.0); Blood Urea Nitrogen 26 mg/dL (9-16); Calcium 9.3 mg/dL (8.4-10.2); Carbon Dioxide 27 mmol/L (22-29); Chloride 103 mmol/L (96-108); Creatinine Clr Calc Pharmacy 42.7; Estimated Glomerular Filt Rate 48; Glucose Random 145 mg/dL (60-115); Potassium 4.4 mmol/L (3.3-5.1); Sodium 141 mmol/L (135-145)
[2022-09-11 23:25] LABS: COVID-19 Test Negative (Negative); IDNOW Serial# 6674DD1D
--- NOTE | 2022-09-11 23:56 | PC.NURSE ---
Addendum entered by Hayley Sullivan 09/12/22 00:53: Pt refused zofan PO, states he is good now after one episode of vomiting. Addendum entered by Hayley Sullivan 09/12/22 00:20: Pt feeling nauseas, vomited one time, provider notified, new orders given. Original Note: Pt A&Ox4, reports 6/10 localized R sided shoulder blade pain, pain started around 9pm tonight while he was sitting in his chair watching TV, worsening with deep breathing, states it feels dull and achy. Pt placed on beside monitor. Denies any CP, SOB or palpitations.
[2022-09-12 00:08] LABS: Appearance Urine Clear; Bacteria Urine None Seen (None Seen); Color Urine Yellow; Glucose Urine UA 100 mg/dL (Negative); Hyaline Casts Urine 0-2 /LPF (0-2); Leukocyte Esterase Urine Negative (Negative); Nitrite Urine Negative (Negative); RBC Urine 0-2 /HPF (0-2); Squamous Epithelial Cell Urine 0-2 /HPF (0-2); UMIC TRIGGER UACC YES; Urine Blood Negative (Negative); Urine Ketones Negative (Negative); Urine Protein 30 (1+) mg/dL (Neg-Trace); WBC Urine 0-5 /HPF (0-5)
[2022-09-12 00:11] LABS: D Dimer High Sensitivity 339 NG/ML
[2022-09-12 02:03] VITALS: BP 171/87; PULSE 65; RESP 16; O2SAT 96
== END 2022-09-12 02:10 | disposition home or self-care (01) ==
PROVIDERS: Emergency Provider Emergency Medicine Emergency Medical Services
DX: R07.89 Other chest pain (principal); M25.511 Pain in right shoulder; M54.50 Low back pain, unspecified; R10.9 Unspecified abdominal pain; I25.10 Atherosclerotic heart disease of native coronary artery without angina pectoris; Z20.822 Contact with and (suspected) exposure to COVID-19; Z20.828 Contact with and (suspected) exposure to other viral communicable diseases; Z79.899 Other long term (current) drug therapy; Z79.01 Long term (current) use of anticoagulants; Z87.891 Personal history of nicotine dependence
CPT/HCPCS: 36415; 71045; 74176; 80053; 81001; 84484; 85025; 85379; 87635; 93005; 96374; 99285